=== PATIENT | male | born 1980 | race African-American/Black ===

== ENCOUNTER 2017-07-02 17:36 | Emergency (ER) | payer OTHER ==
[2017-07-02] MEDS: LIDOCAINE 1% MDV 20ML VIAL IM (18:45)
== END 2017-07-02 19:56 | disposition home or self-care (01) ==
LOC: M ED 17:36
DX: S01.511A Laceration without foreign body of lip, initial encounter (principal); W50.0XXA Accidental hit or strike by another person, initial encounter; Y92.310 Basketball court as the place of occurrence of the external cause; Y93.67 Activity, basketball
CPT/HCPCS: 12013

== ENCOUNTER → 2017-10-13 | Outpatient (CLI) | payer OTHER | LOC: M RAD 14:30 | DX: M27.40 Unspecified cyst of jaw (principal); J01.00 Acute maxillary sinusitis, unspecified | CPT/HCPCS: 70487 ==